=== PATIENT | male | born 1965 | race Hispanic/Latino ===

== ENCOUNTER 2018-04-22 14:38 | Outpatient (CLI) | payer OTHER ==
--- NOTE | 2018-04-22 22:11 | RAD ---
THORACIC SPINE 2 VIEWS: Date: 04/22/18 No fracture, dislocation, or disc space narrowing seen. Some mildly prominent anterior osteophytes ar e seen in the mid to lower thoracic region. No bony destructive lesions are present. 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 POS: HOME
== END 2018-04-22 14:39 | disposition home or self-care (01) ==
LOC: BURRAD 14:38
PROVIDERS: ATTEND Family Medicine
DX: M54.6 Pain in thoracic spine (principal); M47.814 Spondylosis without myelopathy or radiculopathy, thoracic region
CPT/HCPCS: 72070

== ENCOUNTER 2020-04-13 09:41 | Outpatient (CLI) | payer OTHER ==
--- NOTE | 2020-04-13 11:20 | RAD ---
LUMBAR SPINE 3 VIEWS: Date: 04/13/2020 No fracture or disc space narrowing seen. Arthritic changes are fairly minimal. There is a rounded sc lerotic lesion in the L3 vertebral body that measures about 1.3 cm in size. The etiology and signific ance is uncertain and this probably deserves further follow-up. The SI joints are symmetrical. IMPRESSION: 1. No acute findings to explain the patient's symptoms. 2. 1.3 cm sclerotic lesion in the L3 vertebra. Either a CT or MRI might be a reasonable next step to investigate it further. The MRI would have the added ability of showing any neural impingement as a cause of his sciatica better than a CT would. Obviously, the CT might be easier to get. MRI would be performed, but CT could certainly address some of this, if needed. CODE T. POS: HOME
== END 2020-04-13 09:42 | disposition home or self-care (01) ==
LOC: BURRAD 09:41
PROVIDERS: ATTEND Family Medicine
DX: M54.5 Low back pain (principal); M89.9 Disorder of bone, unspecified
CPT/HCPCS: 72100